=== PATIENT | male | born 1955 | race Caucasian/White ===

== ENCOUNTER → 2024-04-15 08:02 | Outpatient (REF) | payer MEDICARE, BC, SELFPAY | LOC: DHCBC/DCA 08:02 | PROVIDERS: ATTENDING PHYSICIAN Internal Medicine Cardiovascular Disease; FAMILY PHYSICIAN Internal Medicine | DX: I10 Essential (primary) hypertension (principal); R94.31 Abnormal electrocardiogram [ECG] [EKG] | CPT/HCPCS: 78452; 93017; A9500 ==

== ENCOUNTER 2024-07-14 07:41 | Day surgery (SDC) | payer MEDICARE, BC, SELFPAY ==
[2024-07-14] VITALS (7 sets, daily range): BP systolic 123–149; BP diastolic 79–91; BMI 27.2
--- NOTE | 2024-07-14 11:06 | ITS.CL.IMPLP ---
Marketing Account Manager - Implant Loop
Implant Loop
Procedure Report:
ILR explant
Date of Procedure: July 14, 2024
Patient : [id number]
Procedure: Insertable Loop Recorder explant
Indication: AF monitoring post PVI
Explant: Medtronic: Medtronic; Model# [id number] ; see prior implant report
Technique: The patient was prepped and draped in the usual fashion. After patient safety timeout and informed consent conscious sedation was administered and local anesthetic was applied to the left prepectoral subcutaneous tissue. Utilizing a
stab incision the chronic incision was opened and the device was visualized. With short graspers the device was removed from the pocket. The incision was closed in a single layer with absorbable suture. The skin was closed with steri-strips. The
estimated blood loss was minimal. There were no complications.
Conclusion: Uncomplicated insertable loop explant.
Recommendation: Patient opts for outpatient ambulatory monitoring and does not desire another loop implant for further monitoring
cc: Dr. Connor Mohr
== END 2024-07-14 12:15 | disposition home or self-care (01) ==
LOC: CATH 07:41
PROVIDERS: ATTENDING PHYSICIAN Internal Medicine Cardiovascular Disease; FAMILY PHYSICIAN Internal Medicine; OTHER PHYSICIAN Internal Medicine Cardiovascular Disease
DX: Z09 Encounter for follow-up examination after completed treatment for conditions other than malignant neoplasm (principal); I25.10 Atherosclerotic heart disease of native coronary artery without angina pectoris; Z95.1 Presence of aortocoronary bypass graft; I25.2 Old myocardial infarction; I10 Essential (primary) hypertension; E78.5 Hyperlipidemia, unspecified; K21.9 Gastro-esophageal reflux disease without esophagitis; Z79.82 Long term (current) use of aspirin
CPT/HCPCS: 33286

== ENCOUNTER → 2025-01-18 16:27 | Outpatient (REF) | payer MEDICARE, BC, SELFPAY ==
[2025-01-18 17:30] LABS: % Basophils 1.2 % (0-2); % Eosinophils 4.5 % (0-6); % Immature Granulocytes 0.4 % (0-0.5); % Lymphocytes 26.8 % (20.5-51.1); % Monocytes 8.1 % (1.7-9.3); Absolute Basophils 0.1 10^3/uL (0-0.2); Absolute Eosinophils 0.4 10^3/uL (0-0.7); Absolute Lymphocytes 2.1 10^3/uL (1.2-3.4); Absolute Monocytes 0.6 10^3/uL (0.1-0.6); Absolute Neutrophils 4.6 10^3/uL (1.4-6.5); Hematocrit 40.2 % (39.0-52.0); Hemoglobin 14.2 g/dL (13.0-18.0); Mean Corp Hgb Conc. 35.3 g/dL (33.0-37.0); Mean Corpuscular Hgb 31.6 pg (27.0-31.0); Mean Corpuscular Volume 89.5 fL (80.0-94.0); Mean Platelet Volume 10.8 fL (7.4-10.4); Nucleated Red Blood Cells % 0 % (-); Platelet Count 180 10^3/uL (130-400); Red Blood Cell Count 4.49 10^6/uL (4.70-6.10); Red Cell Dist. Width 13.3 % (11.5-14.5); White Blood Cell Count 7.8 10^3/uL (4.8-10.8)
[2025-01-18 17:56] LABS: Blood Urea Nitrogen 22 mg/dl (9-20); Carbon Dioxide 26 mmol/L (22-30); Chloride 102 mmol/L (98-107); Glucose 86 mg/dl (70-99); Potassium 5.1 mmol/L (3.5-5.1); Sodium 138 mmol/L (135-145); eGFR 42.83
== END ==
LOC: REG 16:27
PROVIDERS: ATTENDING PHYSICIAN Orthopaedic Surgery Hand Surgery; FAMILY PHYSICIAN Internal Medicine
DX: Z01.818 Encounter for other preprocedural examination (principal)
CPT/HCPCS: 36415; 80048; 85025

== ENCOUNTER 2025-02-28 17:57 | Outpatient (RCR) | payer MEDICARE, BC, SELFPAY | END 2025-02-28 23:59 | disposition home or self-care (01) | LOC: RPT 17:57 | PROVIDERS: ATTENDING PHYSICIAN Student in an Organized Health Care Education/Training Program; FAMILY PHYSICIAN Internal Medicine | DX: M25.511 Pain in right shoulder (principal); Z98.890 Other specified postprocedural states; Z73.6 Limitation of activities due to disability | CPT/HCPCS: 97010; 97110; 97140; 97162 ==

== ENCOUNTER 2025-03-23 18:16 | Outpatient (RCR) | payer MEDICARE, BC, SELFPAY | END 2025-03-23 23:59 | disposition home or self-care (01) | LOC: RPT 18:16 | PROVIDERS: ATTENDING PHYSICIAN Student in an Organized Health Care Education/Training Program; FAMILY PHYSICIAN Internal Medicine | DX: Z47.89 Encounter for other orthopedic aftercare (principal); M25.511 Pain in right shoulder; Z98.890 Other specified postprocedural states; Z73.6 Limitation of activities due to disability; M62.81 Muscle weakness (generalized) | CPT/HCPCS: 97010; 97110; 97140 ==

== ENCOUNTER 2025-04-27 17:57 | Outpatient (RCR) | payer MEDICARE, BC, SELFPAY | END 2025-04-27 23:59 | disposition home or self-care (01) | LOC: RPT 17:57 | PROVIDERS: ATTENDING PHYSICIAN Student in an Organized Health Care Education/Training Program; FAMILY PHYSICIAN Internal Medicine | DX: Z47.89 Encounter for other orthopedic aftercare (principal); M25.511 Pain in right shoulder; Z73.6 Limitation of activities due to disability; M62.81 Muscle weakness (generalized); Z98.890 Other specified postprocedural states | CPT/HCPCS: 97010; 97110; 97140 ==

== ENCOUNTER 2025-05-30 17:54 | Outpatient (RCR) | payer MEDICARE, BC, SELFPAY | END 2025-05-30 23:59 | disposition home or self-care (01) | LOC: RPT 17:54 | PROVIDERS: ATTENDING PHYSICIAN Student in an Organized Health Care Education/Training Program; FAMILY PHYSICIAN Internal Medicine | DX: Z47.89 Encounter for other orthopedic aftercare (principal); M25.511 Pain in right shoulder; Z73.6 Limitation of activities due to disability; M62.81 Muscle weakness (generalized); Z98.890 Other specified postprocedural states | CPT/HCPCS: 97110 ==

== ENCOUNTER 2025-06-30 06:51 | Outpatient (RCR) | payer MEDICARE, BC, SELFPAY | END 2025-06-30 23:59 | disposition home or self-care (01) | LOC: RPT 06:51 | PROVIDERS: ATTENDING PHYSICIAN Student in an Organized Health Care Education/Training Program; FAMILY PHYSICIAN Internal Medicine | DX: Z47.89 Encounter for other orthopedic aftercare (principal); M25.511 Pain in right shoulder; Z73.6 Limitation of activities due to disability; M62.81 Muscle weakness (generalized); Z98.890 Other specified postprocedural states | CPT/HCPCS: 97110; 97140 ==

== ENCOUNTER 2025-07-06 17:00 | Outpatient (RCR) | payer MEDICARE, BC, SELFPAY | END 2025-07-06 23:59 | disposition home or self-care (01) | LOC: RPT 17:00 | PROVIDERS: ATTENDING PHYSICIAN Student in an Organized Health Care Education/Training Program; FAMILY PHYSICIAN Internal Medicine | DX: Z47.89 Encounter for other orthopedic aftercare (principal); M25.511 Pain in right shoulder; Z73.6 Limitation of activities due to disability; M62.81 Muscle weakness (generalized); Z98.890 Other specified postprocedural states | CPT/HCPCS: 97110; 97140 ==